=== PATIENT | female | born 1940 | race Caucasian/White ===

== ENCOUNTER 2016-12-07 12:21 | Emergency (ER) | payer OTHER, BC ==
[~2016-12-07] VITALS: Ht 160 cm; Wt 59.4 kg
[~2016-12-07 12:21] MED LIST: ASPI-390 PO; CALC500C70 PO; CELE100C PO; GLUCTAB7 PO; METH2.5T PO; MULT-506 PO; PRED-301 PO
[2016-12-07 12:29] VITALS: Ht 160 cm; Wt 59.4 kg
[2016-12-07] MEDS ORDERED: KETOROLAC TROMETHAMINE 30 MG/ML VIAL IV STA (12:41)
[2016-12-07] MEDS ORDERED: ACETAMINOPHEN 500 MG TAB PO STA (12:41)
[2016-12-07] MEDS ORDERED: SODIUM CHLORIDE 0.9% 1000ML 1,000 ML IV STA (12:41)
[2016-12-07] MEDS ORDERED: ONDANSETRON INJ 2 MG/ML 2 ML VIAL IV STA (12:41)
--- NOTE | 2016-12-07 13:10 | EMERGENCY ROOM VISIT NOTE ---
History Report prepared by [facility]: Ashlyn Perez Under the Supervision of: Dr. Perry Munoz M.D. First contact with patient: 12:35 Chief Complaint: HEADACHE Stated Complaint: HEADACHE, DIZZY X 3 DAYS, POSSIBLE DEHYDRATION History of Present Illness The patient is a 76 year old female who presents to the Emergency Room with complaints of a constant headache for the past 3 days. She states that the headache began gradually. It is located diffusely throughout her head and behind her eyes bilaterally. She has a history of migraine headaches, but states that this does not feel like her typical migraine. She has been taking Excedrin without any relief of her symptoms. The patient rates her pain as a 5/ 10 in severity. She has also been experiencing dizziness for the past 3 days. She states that it has gotten so intense that her has had to help her walk to the bathroom. She has nausea secondary to her dizziness and no appetite. The patient was seen today at [facility]. They were concerned for dehydration and advised the patient come to the ED for further evaluation. The patient states that she has had similar symptoms in the past with dehydration. She denies fever, vomiting, and urinary symptoms. She denies any focal weakness. She denies LOC or recent head injury. She does not take any blood thinners. Source of History: patient Onset: 3 days ago Position: head Symptom Intensity: 5/10 Timing: constant Associated Symptoms: + nausea, No LOC, No fevers, No vomiting, No urinary symptoms, No weakness Note: Pt reports dizziness. Review of Systems See HPI for pertinent positives & negatives. A total of 10 systems reviewed and were otherwise negative. Past Medical & Surgical Medical Problems: (1) Abdominal pain (2) Acute appendicitis (3) Change in mental status (4) Rheumatoid arthritis (5) Severe headache (6) Severe headache (7) Vomiting Family History Hypertension Social History Smoking Status: Never Smoker Drug Use: none Marital Status: Housing Status: lives with significant other Current/Historical Medications Scheduled Calcium/Vitamin D (Os-Get 500 Plus D), 1 TAB PO DAILY Celecoxib (Celebrex), 100 MG PO DAILY Zekhnzaqxzx-Tikrztrryzc-Brh C- (Glucosamine Chondroitin), 1 TAB PO DAILY Levofloxacin (Levaquin), 500 MG PO DAILY Methotrexate (Methotrexate), 15 MG PO WK Multivitamin (Multivitamin), 1 TAB PO DAILY Prednisone (Prednisone), 5 MG PO DAILY Scheduled PRN Hnpjjgy-Qsxfdulydgmvp-Vmvzlfwu (Excedrin Migraine), 2 TAB PO UD PRN for Migraine Allergies Coded Allergies: Penicillins (Verified Allergy, Unknown, ., 12/07/16) Physical Exam Vital Signs Date Time Temp Pulse Resp B/P (MAP) Pulse Ox O2 Delivery O2 Flow Rate FiO2 12/07/16 15:07 36.7 61 18 148/79 98 12/07/16 12:29 36.7 78 18 155/84 97 Room Air Physical Exam GENERAL: Patient is in no acute distress. HEENT: No acute trauma, normocephalic atraumatic, mucous membranes dry, no nasal congestion, no scleral icterus. NECK: No stridor, no adenopathy, no meningismus, trachea is midline. LUNGS: Clear to auscultation bilaterally, no wheeze, no rhonchi, breath sounds equal. HEART: Without murmurs gallops or rubs, regular rate and rhythm. ABDOMEN: Soft, nontender, bowel sounds positive, no hernias, no peritonitis. EXTREMITIES: No cyanosis or edema, full range of motion of all the joints without pain or difficulty, no signs for acute trauma. NEUROLOGIC: Oriented x 3, no acute motor or sensory deficits, no focal weakness. No pronator drift or cerebellar dysfunction. SKIN: No rash, no jaundice, no diaphoresis. Medical Decision & Procedures ER Provider Diagnostic Interpretation: Radiology results as stated below per my review and radiologist interpretation: CT SCAN OF THE BRAIN WITHOUT IV CONTRAST CLINICAL HISTORY: Dizziness and headache. COMPARISON STUDY: CT of the brain dated 05/29/2013. TECHNIQUE: Unenhanced axial CT scan of the brain is performed from the vertex to the skull base. CT DOSE: 537.48 mGy.cm FINDINGS: Brain parenchyma: There are age-related involutional changes noting mild subcortical and periventricular microangiopathic change. There is no hemorrhage, mass effect, or evidence of acute territorial ischemia by CT criteria. Graves-white matter is preserved. No extra-axial fluid collection is seen. Ventricles, sulci, cisterns: Prominent secondary to involutional change. Intracranial vasculature: There is atherosclerotic calcification of the cavernous carotid intervertebral arteries. Calvarium: Unremarkable. Sinuses and mastoids: The visualized paranasal sinuses are clear. The mastoid air cells are well pneumatized. Orbits: The bony orbits are grossly intact. There are bilateral ocular lens implants. IMPRESSION: There is no hemorrhage, mass effect, or evidence of acute territorial ischemia by CT criteria. Electronically signed by: Perry Handley M.D. 12/07/2016 1:39 PM Dictated Date/Time: 12/07/2016 1:34 PM Laboratory Results 12/07/16 13:20 Red Blood Count 4.28, Mean Corpuscular Volume 97.9, Mean Corpuscular Hemoglobin 35.5, Mean Corpuscular Hemoglobin Concent 36.3, Mean Platelet Volume 9.5, Neutrophils (%) (Auto) 79.6, Lymphocytes (%) (Auto) 6.8, Monocytes (%) (Auto) 11.6, Eosinophils (%) (Auto) 1.1, Basophils (%) (Auto) 0.3, Neutrophils # (Auto ) 5.71, Lymphocytes # (Auto) 0.49, Monocytes # (Auto) 0.83, Eosinophils # (Auto ) 0.08, Basophils # (Auto) 0.02 12/07/16 13:20 Test 12/07/16 13:20 White Blood Count 7.17 K/uL (4.8-10.8) Red Blood Count 4.28 M/uL (4.2-5.4) Hemoglobin 15.2 g/dL (12.0-16.0) Hematocrit 41.9 % (37-47) Mean Corpuscular Volume 97.9 fL (80-100) Mean Corpuscular Hemoglobin 35.5 pg (25-34) Mean Corpuscular Hemoglobin Concent 36.3 g/dl (32-36) Platelet Count 248 K/uL (130-400) Mean Platelet Volume 9.5 fL (7.4-10.4) Neutrophils (%) (Auto) 79.6 % Lymphocytes (%) (Auto) 6.8 % Monocytes (%) (Auto) 11.6 % Eosinophils (%) (Auto) 1.1 % Basophils (%) (Auto) 0.3 % Neutrophils # (Auto) 5.71 K/uL (1.4-6.5) Lymphocytes # (Auto) 0.49 K/uL (1.2-3.4) Monocytes # (Auto) 0.83 K/uL (0.11-0.59) Eosinophils # (Auto) 0.08 K/uL (0-0.5) Basophils # (Auto) 0.02 K/uL (0-0.2) RDW Standard Deviation 46.2 fL (36.4-46.3) RDW Coefficient of Variation 13.0 % (11.5-14.5) Immature Granulocyte % (Auto) 0.6 % Immature Granulocyte # (Auto) 0.04 K/uL (0.00-0.02) Urine Color YELLOW Urine Appearance CLEAR (CLEAR) Urine pH 6.5 (4.5-7.5) Urine Specific [place] <= 1.005 (1.000-1.030) Urine Protein NEG (NEG) Urine Glucose (UA) NEG (NEG) Urine Ketones 1+ (NEG) Urine Occult Blood TRACE (NEG) Urine Nitrite POS (NEG) Urine Bilirubin NEG (NEG) Urine Urobilinogen NEG (NEG) Urine Leukocyte Esterase MODERATE (NEG) Urine RBC 0-4 /hpf (0-4) Urine WBC >30 /hpf (0-5) Urine Epithelial Cells 0-5 /lpf (0-5) Urine Bacteria 3+ (NEG) Urine Hyaline Casts 1-5 /lpf (0-5) Anion Gap 8.0 mmol/L (3-11) Est Creatinine Clear Calc Drug Dose 46.4 ml/min Estimated GFR () 75.0 Estimated GFR (Non- 64.7 BUN/Creatinine Ratio 19.0 (10-20) Calcium Level 9.3 mg/dl (8.5-10.1) Chemistry Specimen Hemolysis Laboratory results reviewed by me. Medications Administered Medications (Trade) Dose Ordered Sig/Claude Route Start Time Stop Time Status Last Admin Dose Admin Ketorolac Tromethamine (Toradol Inj) 30 mg NOW STAT IV 12/07/16 12:41 12/07/16 12:44 DC 12/07/16 13:23 30 MG Sodium Chloride 1,000 ml @ 999 mls/hr Q1H1M STAT IV 12/07/16 12:41 12/07/16 13:41 DC 12/07/16 13:22 999 MLS/HR Ondansetron HCl (Zofran Inj) 4 mg NOW STAT IV 12/07/16 12:41 12/07/16 12:44 DC 12/07/16 13:22 4 MG Acetaminophen (Tylenol Tab) 1,000 mg NOW STAT PO 12/07/16 12:41 12/07/16 12:44 DC 12/07/16 13:23 1,000 MG Levofloxacin (Levaquin Tab) 750 mg NOW STAT PO 12/07/16 14:33 12/07/16 14:34 DC 12/07/16 14:40 750 MG ED Course 1235: The patient was evaluated in room A3. A complete history and physical exam was performed. 1241: Tylenol 1000 mg PO, Zofran 4 mg IV, NSS 1000 ml @ 999 mls/hr IV, Toradol 30 mg IV 1426: I reassessed the patient at this time. She is feeling better and resting comfortably. I discussed the results and treatment plan with the patient. I answered all pertaining questions that she had. She expressed understanding and verbalized agreement. The patient will be discharged home. 1433: Levofloxacin 750 mg PO Medical Decision Differential diagnoses includes migraine headache, tension headache, sinusitis, intracranial bleeding, stroke, UTI, electrolyte imbalance, infection. There is no leukocytosis or concerning anemia. No significant electrolyte abnormality, no kidney failure. Urinalysis does suggest infection. Urine culture is pending. Brain CT shows no acute bleed or mass effect. On exam, there were no focal neurologic deficits. The patient was afebrile, she was not toxic in appearance. Patient received IV saline, IV Zofran, IV Toradol and oral Tylenol. She was given oral Levaquin. The patient feels markedly better since treatment. I suspect the UTI is the major issue here today. She is being discharged on Levaquin for one more week. Hydration, rest, jvei-ymw-uxpctkj pain meds were encouraged. If worsening, she should return. Medication Reconcilliation Current Medication List: was personally reviewed by me Blood Pressure Screening Patient's blood pressure: Elevated blood pressure Blood pressure disposition: Elevated BP felt to be situational Impression Primary Impression: Headache Additional Impressions: Dehydration UTI (urinary tract infection) Scribe Attestation The scribe's documentation has been prepared under my direction and personally reviewed by me in its entirety. I confirm that the note above accurately reflects all work, treatment, procedures, and medical decision making performed by me. Departure Information Dispostion Home / Self-Care Prescriptions Levofloxacin (Levaquin) 500 Mg Tab 500 MG PO DAILY for 7 Days, #7 TAB Prov: Feese, Perry J.,M.D. 12/07/16 Referrals Susan Jara (PCP) Forms HOME CARE DOCUMENTATION FORM, IMPORTANT VISIT INFORMATION Patient Instructions My [facility] Additional Instructions levaquin daily for 1 more week stay well hydrated otc pain meds rest return for fever, vomiting or worsening symptoms lab testing and imaging was ok today a urine infection was noted Problem Qualifiers Primary Impression: Headache Headache type: unspecified Headache chronicity pattern: acute headache Intractability: not intractable Qualified Codes: R51 - Headache
[2016-12-07] MEDS ORDERED: ASPI-390 PO (13:41)
--- NOTE | 2016-12-07 13:41 | DIAGNOSTIC IMAGING REPORT ---
CT SCAN OF THE BRAIN WITHOUT IV CONTRAST CLINICAL HISTORY: Dizziness and headache. COMPARISON STUDY: CT of the brain dated 05/29/2013. TECHNIQUE: Unenhanced axial CT scan of the brain is performed from the vertex to the skull base. CT DOSE: 537.48 mGy.cm FINDINGS: Brain parenchyma: There are age-related involutional changes noting mild subcortical and periventricular microangiopathic change. There is no hemorrhage, mass effect, or evidence of acute territorial ischemia by CT criteria. Graves-white matter is preserved. No extra-axial fluid collection is seen. Ventricles, sulci, cisterns: Prominent secondary to involutional change. Intracranial vasculature: There is atherosclerotic calcification of the cavernous carotid intervertebral arteries. Calvarium: Unremarkable. Sinuses and mastoids: The visualized paranasal sinuses are clear. The mastoid air cells are well pneumatized. Orbits: The bony orbits are grossly intact. There are bilateral ocular lens implants. IMPRESSION: There is no hemorrhage, mass effect, or evidence of acute territorial ischemia by CT criteria. Electronically signed by: Perry Handley M.D. 12/07/2016 1:39 PM Dictated Date/Time: 12/07/2016 1:34 PM
[2016-12-07 13:44] LABS: BASO % 0.3 %; BASO ABS # 0.02 K/uL (0-0.2); COMPLETE YES; EOS % 1.1 %; HEMATOCRIT 41.9 % (37-47); IG% 0.6 %; LYMPH % 6.8 %; LYMPH ABS # 0.49 K/uL (1.2-3.4); MEAN CELL VOLUME 97.9 fL (80-100); MEAN CORPUSCULAR HEMOGLOBIN 35.5 pg (25-34); MEAN CORPUSCULAR HGB CONC 36.3 g/dl (32-36); MEAN PLATELET VOLUME 9.5 fL (7.4-10.4); MONO % 11.6 %; NEUT % 79.6 %; PLATELET COUNT 248 K/uL (130-400); RED BLOOD COUNT 4.28 M/uL (4.2-5.4); WHITE BLOOD COUNT 7.17 K/uL (4.8-10.8)
[2016-12-07 13:59] LABS: MANUAL MICROSCOPIC REQUIRED? YES; URINE APPEARANCE CLEAR (CLEAR); URINE BILIRUBIN NEG (NEG); URINE COLOR YELLOW; URINE NITRITE POS (NEG); URINE PH 6.5 (4.5-7.5); URINE SPECIFIC GRAVITY <= 1.005 (1.000-1.030); UROBILINOGEN NEG (NEG)
[2016-12-07 14:12] LABS: REVIEW REQ? NO
[2016-12-07 14:15] LABS: CALCIUM 9.3 mg/dl (8.5-10.1); CREATININE 0.88 mg/dl (0.60-1.20); POTASSIUM 3.7 mmol/L (3.5-5.1)
[2016-12-07 14:21] LABS: URINE BACTERIA 3+ (NEG); URINE RBC 0-4 /hpf (0-4); URINE WBC >30 /hpf (0-5); ZZUR CULT IF INDIC CLEAN CATCH YES
[2016-12-07] MEDS ORDERED: LEVOFLOXACIN 250 MG TAB PO STA (14:33)
[2016-12-07] MEDS ORDERED: LEVO-366 PO (14:36)
[2016-12-07 15:07] VITALS: BP 148/79; PULSE 61; TEMP 36.7; O2SAT 98
== END 2016-12-07 15:08 | disposition home or self-care (01) ==
LOC: C.EDB 12:25 → C.EDA 15:08
DX: R51 Headache (principal); E86.0 Dehydration; N39.0 Urinary tract infection, site not specified; M06.9 Rheumatoid arthritis, unspecified; Z82.49 Family history of ischemic heart disease and other diseases of the circulatory system; Z79.899 Other long term (current) drug therapy

== ENCOUNTER → 2016-12-13 | Outpatient (CLI) | payer OTHER, BC ==
[~2016-12-13] MED LIST changes: +LEVO-366 PO
--- NOTE | 2016-12-13 15:19 | MAMMOGRAPHY REPORT ---
BILATERAL DIGITAL SCREENING MAMMOGRAM WITH CAD: 12/13/2016 CLINICAL HISTORY: Routine screening. Patient has no complaints. TECHNIQUE: Bilateral CC and MLO views were obtained. Current study was also evaluated with a Compute r Aided Detection (CAD) system. COMPARISON: Comparison is made to exams dated: 12/11/2015 mammogram, 12/08/2014 mammogram, 3 mammogram, 02/15/2011 mammogram, 02/11/2009 mammogram - [facility], and 8. BREAST COMPOSITION: The tissue of both breasts is extremely dense, which lowers the sensitivity of m ammography. FINDINGS: The parenchymal pattern is similar to prior mammograms. No developing mass, architectural distortion or cluster of suspicious microcalcifications is seen in either breast. IMPRESSION: ACR BI-RADS CATEGORY 2: BENIGN There is no mammographic evidence of malignancy. A 1 year screening mammogram is recommended. The pa tient will receive written notification of the results. Approximately 10% of breast cancers are not detected with mammography. A negative mammographic report should not delay biopsy if a clinically suggestive mass is present. Roxanna Walton M.D. ay/:12/13/2016 12:12:00 Bit Sharpener: Alise KEENE(Roc)(Rashad), [facility] letter sent: Normal 1/2 BI-RADS Code: ACR BI-RADS Category 2: Benign
== END | disposition home or self-care (01) ==
LOC: C.MAMM 09:55
PROVIDERS: ATTEND Nurse Practitioner Family
DX: Z12.31 Encounter for screening mammogram for malignant neoplasm of breast (principal)

== ENCOUNTER → 2017-06-15 | Outpatient (CLI) | payer OTHER, BC ==
[~2017-06-15] MED LIST changes: -LEVO-366 PO
== END | disposition home or self-care (01) ==
LOC: C.MAMM 09:50
PROVIDERS: ATTEND Internal Medicine
DX: M85.89 Other specified disorders of bone density and structure, multiple sites (principal); M81.0 Age-related osteoporosis without current pathological fracture

== ENCOUNTER 2019-04-14 01:24 | Observation (INO) ==
[2019-04-14] MEDS ORDERED: ASPIRIN 81 MG CHEW PO STA (01:42)
[2019-04-14] MEDS ORDERED: LABETALOL HCL IV 5 MG/ML 20ML IV STA (02:15)
[2019-04-14 02:42] LABS: Basophils # (auto) 0.01 K/uL (0-0.2); Basophils % (auto) 0.2 %; Eosinophils # (auto) 0.09 K/uL (0-0.5); Hemoglobin 12.8 g/dL (12.0-16.0); Immature Granulocytes # (auto) 0.01 K/uL (0.00-0.02); Immature Granulocytes % (auto) 0.2 %; Lymphocytes % (auto) 31.8 %; Mean Corpuscular Hemoglobin 34.2 pg (25-34); Mean Corpuscular Hgb Conc 34.6 g/dL (32-36); Mean Corpuscular Volume 98.9 fL (80-100); Mean Platelet Volume 9.2 fL (7.4-10.4); Monocytes % (auto) 13.6 %; Neutrophils # (auto) 2.29 K/uL (1.4-6.5); Neutrophils % (auto) 52.2 %; Platelet Count 224 K/uL (130-400); RDW Coefficient of Variation 13.5 % (11.5-14.5); RDW Standard Deviation 48.9 fL (36.4-46.3); Red Blood Count 3.74 M/uL (4.2-5.4)
[2019-04-14 02:53] LABS: Partial Thromboplastin Ratio 0.8; Partial Thromboplastin Time 22.5 Seconds (21.0-31.0); Prothrombin Time 9.8 Seconds (9.0-12.0)
[2019-04-14 02:58] LABS: BUN Creatinine Ratio 30.5 (10-20); Blood Urea Nitrogen 22 mg/dl (7-18); Calcium 8.7 mg/dl (8.5-10.1); Carbon Dioxide 26 mmol/L (21-32); Chloride 110 mmol/L (98-107); Est GFR (African American) 92.7; Glucose 87 mg/dl (70-99); Potassium 3.7 mmol/L (3.5-5.1); Sodium 141 mmol/L (136-145)
[2019-04-14 03:03] LABS: Troponin I < 0.015 ng/ml (0-0.045)
--- NOTE | 2019-04-14 05:22 | History & Physical Report ---
Date of Service April 14, 2019 Assessment & Plan (1) Pressure in left side of chest: Iliana Montejo is a 78-year-old female with no prior history of cardiac disease or diabetes who presents with 2 weeks of intermittent palpitations and slight chest pain in her left inferior pec region which lasts for a couple beats/a couple of seconds but which is increasing in frequency in the last week. Chest pain/palpitations EKG on admission normal sinus rhythm. New T wave inversions appreciated in precordial leads. Slight ST depressions less than 1 mm appreciated in V4, V5, V6. Patient clinically asymptomatic at time of exam Initial troponin negative History potentially concerning for unstable angina, although description as a couple of very noticeable palpitations/beats may also be PVCs/PACs. If these are observed she may benefit from addition of a beta-vandana. Patient received labetalol in the emergency department, which may suppress these if present RN CAMP. Heart score of 3, low risk Admit to med telemetry for observation Trend troponins x3 Given territorial T wave inversions, if in-hospital evaluation is negative she may benefit from a nuclear stress test Given aspirin in ED Heparinization deferred Follow clinically CBC daily Lipid profile pending, A1c pending Psoriatic arthritis Scaled plaques present on extensor surfaces and lower back Continue prednisone/MTX therapy Stable, no acute change Chronic steroid treatment Alendronate 70 mg weekly, may resume after discharge Continue prednisone 5 mg daily DVT prophylaxis: Heparin 40 mg subcu Diet: Regular CODE STATUS: Full code Disposition: Med/telemetry for cardiac observation (2) T wave inversion in EKG: (3) Vertigo: (4) Rheumatoid arthritis: (5) Psoriatic arthritis: History of Present Illness Chief Complaint: Palpitations Primary Care Provider: CANDIDA Negron Iliana Montejo is a 78-year-old female with no prior history of cardiac disease or diabetes who presents with 2 weeks of intermittent palpitations and slight chest pain in her left inferior pec region which lasts for a couple beats/a couple of seconds but which is increasing in frequency in the last week. Her symptoms began 2 weeks ago, she noticed some left chest "fluttering "intermittently with no association to exercise or exertion. She has not had any associated dyspnea, diaphoresis, syncope, or presyncope. She does not have any chest pain or pressure, and no symptoms radiating into her shoulder or neck. She notes that she is able to climb a flight of stairs at baseline, and doing so does not induce or worsen her symptoms. Her symptoms have occurred at rest, and most recently have been occurring about every 45 minutes. She does not have a history of A. fib, PVCs, or PACs to her knowledge. She has not been sick recently, has no cold-like symptoms, and has not had any sensation or strength changes. She is seen at the bedside with her who reports that otherwise she is very well. She does not have a family history of early cardiac disease or cardiomyopathy. She reports that she has never needed to be treated for hypertension, and although she is anxious and her blood pressures been a little high this admission it is normally below 140. No recent fever/chills. Medical history: Vertigo, psoriatic arthritis Surgical history: Appendectomy Medications: Methotrexate and chronic prednisone 5 mg for psoriatic arthritis. She is to take celecoxib, has not taken this in over 1 month and tapered off of this. Has meclizine prescribed, but has not needed this since an episode of vertigo a long time ago. Allergies: Penicillins, rash Family history: No family history of early cardiac disease, diabetes, or stroke. Social: Non-smoker, no current or former tobacco use. No alcohol use. No recreational drug use. She is and is seen at bedside with her with whom she has a good relationship. She lives at home and is independent with no previous problems with ambulation. CODE STATUS: Full code Allergies Allergy/AdvReac Type Severity Reaction Status Date / Time Penicillins Allergy Unknown . Verified 04/14/19 02:13 Home Medications Home Medications Medication Instructions Recorded Confirmed Type alendronate 70 mg tablet 70 mg PO WEEKLY tab 02/21/19 04/14/19 History calcium citrate 250 mg 1 tab PO DAILY tab 02/21/19 04/14/19 History calcium-vitamin D3 200 unit tablet celecoxib 100 mg capsule 100 mg PO BID PRN 02/21/19 04/14/19 History meclizine 25 mg tablet 25 mg PO TID PRN #30 tab 02/21/19 04/14/19 Rx methotrexate sodium 2.5 mg tablet 12.5 mg PO WEEKLY tab 02/21/19 04/14/19 History prednisone 5 mg tablet 5 mg PO DAILY 02/21/19 04/14/19 History Past Med/Surg History Medical History (Updated 04/14/19 @ 04:11 by Kvng Thibodeaux) Acute appendicitis (Resolved) Psoriatic arthritis Rheumatoid arthritis (Chronic) Vertigo Surgical History (Updated 04/14/19 @ 01:44 by Kvng Thibodeaux) History of appendectomy Social History marital status: Current Living Situation: Spouse current occupational status: retired Feels Safe at Home: Yes Smoking Status: Never smoker Second Hand Exposure: No ; Hx Alcohol Use: No Hx Substance Use: No caffeine: No Dental Care, Regularly: Yes Physical Activity Frequency: 1-2 Times per Week Seatbelt Use: always Sunscreen Use: Yes Review of Systems Review of Systems: All systems reviewed & are unremarkable except as noted in HPI & below Physical Exam Physical Exam: General: A&Ox3. NAD. Cooperative. HEENT: Atraumatic, normocephalic. Mucous membranes moist. Pulm: CTAB A&P. -wheezes, -rales, -rhonchi. Symmetrical chest rise. No increase work of breathing. No respiratory distress. Cardiac: RRR, -mrg. Radial pulses intact and symmetrical. Abdominal: Nontender, nondistended, soft. BS present. CN II: Visual baird are full to confrontation. Pupils are equal and react to light and accomidation. Visual acuity grossly intact. CN III, IV, : At primary gaze, there is no eye deviation. EoM intact without nystagmus. No visual field cuts. CN V: Facial sensation is intact to soft touch in all 3 divisions bilaterally. CN VII: No facial asymmetry, full strength to eyebrow raise, smile, eye close, a nd cheek puff. CN VII: Hearing is grossly intact. CN IX, X: Palate elevates symmetrically. Phonation is normal without dysarthria. CN XI: Head turning and shoulder shrug are intact CN XII: Tongue protrudes midline. Reflexes: Patellar DTR 2+ Bilaterally. No ankle clonus. Sensory: Light touch, pinprick intact in upper and low extremities without deficit or asymmetry. Strength: RUE: Shoulder flexion/extension/internal rotation/external rotation, elbow flexion/extension, finger flexion/extension, sap bpc developer strength, interosseous 5/5 LUE: Shoulder flexion/extension/internal rotation/external rotation, elbow flexion/extension, finger flexion/extension, sap bpc developer strength, interosseous 5/5 RLE: Hip flexion, knee flexion/extension, ankle plantar flexion/dorsiflexion 5/5 LLE: Hip flexion, knee flexion/extension, ankle plantar flexion/dorsiflexion 5/5 Results & Data Vital Signs (Past 12 Hours) Vital Signs Temp Pulse Resp BP Pulse Ox 04/14/19 04:31 61 15 96 04/14/19 04:30 63 15 169/95 H 98 04/14/19 04:20 71 14 97 04/14/19 04:10 67 23 98 04/14/19 04:01 64 21 97 04/14/19 04:00 61 14 166/99 H 98 04/14/19 03:50 69 17 96 04/14/19 03:40 62 15 98 04/14/19 03:31 65 20 97 04/14/19 03:30 60 20 151/83 H 97 04/14/19 03:20 63 20 99 04/14/19 03:15 62 20 97 04/14/19 03:14 61 15 157/78 H 97 04/14/19 03:13 64 19 97 04/14/19 02:50 60 15 04/14/19 02:40 72 19 04/14/19 02:31 63 14 04/14/19 02:30 70 14 181/115 H 04/14/19 02:01 64 14 97 04/14/19 02:00 68 18 184/107 H 99 04/14/19 01:45 65 16 182/104 H 97 04/14/19 01:35 76 20 04/14/19 01:33 77 20 209/88 H 04/14/19 01:30 36.6 C 74 18 209/88 H 99 Supervising Physician Co-Signing Physician Notes During my face to face encounter with the patient, which was completed after discussing case with Dr. Calvert, I obtained a history and physical examination. I reviewed above note, and agree with it. I reviewed the lab results and images. Patient will be admitted under obs for chest pain. Will check troponin x 3. Heart score of 3. EKG does show t wave inversion. May consider echocardiogram and stress test. Resident Activity Tracking Resident Involvement: Resident Care Provided Care Provided: Adult [facility]
--- NOTE | 2019-04-14 06:13 | Billing Data ---
Date of Service April 14, 2019 Coding Level of Care Code 11332 OBS Care - Level 3
--- NOTE | 2019-04-14 06:25 | Emergency Department Note ---
Entered by Kvng Thibodeaux acting as a scribe for ED Provider Note Name: Iliana Montejo Age: 78 Arrives Via: Walk in Informant: Patient CC: Chest discomfort HPI: The patient is a 78 year old female who presents to the emergency department with complaints of worsening chest discomfort beginning two weeks ago. The patient states that she started having intermittent chest fluttering for two weeks. She notes that these episodes have been more frequent and longer for the last day. She reports that her discomfort is a dull ache, and she states that her discomfort does not radiate. She notes that nothing makes her discomfort better or worse. She denies any nausea, vomiting, LOC, SOB, leg swelling, abdominal pain, and lightheadedness. She denies any current CP. She reports that she recently flew back from [place]. The patient states that she does not have a personal or family history of heart problems. She notes that she does not smoke cigarettes or drink alcohol. She reports that she has been on prednisone for a long time due to psoriatic arthritis. ROS: See above HPI for pertinent positives & negatives. A total of 10 systems reviewed and were otherwise negative. Past Medical History: Psoriatic arthritis Past Surgical History: Appendectomy Family History: Hypertension, cancer Social History: Lives with family, does not smoke cigarettes or drink alcohol Home Medications: Please see medication list Allergies: Penicillin Physical: Vitals: BP 209/110, Pulse 204, Resp 18, Temp 97.9 F, O2 Sat 99 Exam: GENERAL: Patient is mildly anxious appearing and in no acute distress. EYES: No scleral icterus, unremarkable pupils. ENT: Mucous membranes moist, no nasal congestion. NECK: No masses appreciated, no meningismus, trachea is midline. RESPIRATORY: No dyspnea. Clear to auscultation and equal bilaterally. No wheeze, no rhonchi. CARDIOVASCULAR: Regular rate and rhythm. No murmurs, rubs, gallops appreciated. GASTROINTESTINAL: Abdomen soft, non-tender, no peritonitis. Bowel sounds positive. No masses appreciated. BACK: No midline tenderness, no CVA tenderness EXTREMITIES: Normal motion all extremities, no cyanosis, no edema. NEUROLOGIC: Alert and oriented, no acute motor or sensory deficits, no focal weakness, cranial nerves grossly intact. SKIN: No rash, no jaundice, no diaphoresis. Multiple areas of psoriatic findings. ED Course: Prior Medical Record, Triage/Nursing Notes, Medications, Allergies reviewed by Me Richardson3: The patient was evaluated in room B7. A complete history and physical exam was performed. 0215: I rechecked the patient. Her blood pressure remains at 180/107. Labetalol was ordered. She had several more episodes of mild discomfort over the last few minutes. 0347: I reevaluated and updated the patient. She has no further pain and is agreeable to hospitalization. 0401: Upon reevaluation, the patient is stable. I discussed the findings and the treatment plan with the patient. She expresses agreement and understanding. I spoke with Dr. Rodríguez of the [facility] Hospitalist Service. The patient will be evaluated for further management. Vital Signs: reviewed and remarkable for HTN Labs: Reviewed and remarkable for wnl cbc, bmp, trop Interventions: Saline lock, asa 324mg PO, labetalol 10mg IV Imaging: CHEST X-RAY: X ray results are stated below per my interpretation: Chest: 1 view: No infiltrate, no effusion, normal cardiac border. EKG: Per My Interpretation: Indication Chest Pain: NSR 68 bpm, qtc 423. Anterolateral T wave inversions noted. No Ectopy. No Stemi. Compared to EKG 11/13/14 the T wave inversions are new Oyster Farmer: An Order was placed for continuous cardiac monitoring. Ther monitor shows a rate of 70 with a normal sinus rhythm. Consults: 0401: I reviewed the patient's case with Dr. Rodríguez - Hospitalist, [facility]. He will evaluate the patient for further management. Blood pressure: Elevated - Will be monitored by hospitalist. Disposition: Hospitalization Differential diagnoses includes but is not limited to acute coronary syndrome, myocardial infarction, pericarditis, pulmonary embolus, aortic dissection, pneumonia, pneumothorax, musculoskeletal, shingles, esophageal. Medical Decision Makin yr old female with history of chronic prednisone use, psoriasis and vertigo arrives with increasing intermittent left chest pains for the last 2 weeks, significantly increased this evening. No pain on arrival. Quite Hypertensive on arrival evaluation and EKG with new lateral T wave inversions. ASA given and work-up begun. Labetalol for Hypertension with improvement. Labs unremarkable, cxr clear. Trop initially is negative. With HEART score and T wave inversions I feel hospitalization warranted. Patient stable without further symptoms. Symptoms are not consistent with PE/Dissection. There is no evidence of infection or electrolyte imbalance. Impression: Unstable angina, Pressure in left side of chest, T wave inversion in EKG Colt Haro MD The scribe's documentation has been prepared under my direction and personally reviewed by me in its entirety. I confirm that the note above accurately reflects all work, treatment, procedures, and medical decision making performed by me. Impression & Plan Unstable angina, Pressure in left side of chest, T wave inversion in EKG Past Med/Surg History Medical History (Updated 04/14/19 @ 04:11 by Kvng Thibodeaux) Acute appendicitis (Resolved) Psoriatic arthritis Rheumatoid arthritis (Chronic) Vertigo Surgical History (Updated 04/14/19 @ 01:44 by Kvng Thibodeaux) History of appendectomy Social History marital status: Current Living Situation: Spouse current occupational status: retired Feels Safe at Home: Yes Smoking Status: Never smoker Second Hand Exposure: No ; Hx Alcohol Use: No Hx Substance Use: No caffeine: No Dental Care, Regularly: Yes Physical Activity Frequency: 1-2 Times per Week Seatbelt Use: always Sunscreen Use: Yes Results & Data Vital Signs Vital Signs - 24 hr 04/14/19 01:30 04/14/19 01:33 04/14/19 01:35 Temperature 36.6 C Temperature Source Oral Pulse Rate 74 77 76 Pulse Rate from SpO2 Sensor Pulse Rhythm Regular Pulse Strength Normal Respiratory Rate 18 20 20 Respiratory Effort / Characteristics Non-Labored Spontaneous Respiratory Depth Normal Respiratory Pattern Regular Blood Pressure 209/88 H 209/88 H Blood Pressure Mean 128 118 Blood Pressure Position Sitting Pulse Oximetry 99 Oxygen Delivery Method Room Air Sepsis Recent Fever Within 48 Hours No Sepsis Action Taken by Nursing No Action Required 04/14/19 01:45 04/14/19 02:00 04/14/19 02:01 Temperature Temperature Source Pulse Rate 65 68 64 Pulse Rate from SpO2 Sensor 66 68 64 Pulse Rhythm Pulse Strength Respiratory Rate 16 18 14 Respiratory Effort / Characteristics Respiratory Depth Respiratory Pattern Blood Pressure 182/104 H 184/107 H Blood Pressure Mean 152 165 Blood Pressure Position Pulse Oximetry 97 99 97 Oxygen Delivery Method Sepsis Recent Fever Within 48 Hours Sepsis Action Taken by Nursing 04/14/19 02:30 04/14/19 02:31 04/14/19 02:40 Temperature Temperature Source Pulse Rate 70 63 72 Pulse Rate from SpO2 Sensor Pulse Rhythm Pulse Strength Respiratory Rate 14 14 19 Respiratory Effort / Characteristics Respiratory Depth Respiratory Pattern Blood Pressure 181/115 H Blood Pressure Mean 160 Blood Pressure Position Pulse Oximetry Oxygen Delivery Method Sepsis Recent Fever Within 48 Hours Sepsis Action Taken by Nursing 04/14/19 02:50 04/14/19 03:13 04/14/19 03:14 Temperature Temperature Source Pulse Rate 60 64 61 Pulse Rate from SpO2 Sensor 65 62 Pulse Rhythm Pulse Strength Respiratory Rate 15 19 15 Respiratory Effort / Characteristics Respiratory Depth Respiratory Pattern Blood Pressure 157/78 H Blood Pressure Mean 122 Blood Pressure Position Pulse Oximetry 97 97 Oxygen Delivery Method Sepsis Recent Fever Within 48 Hours Sepsis Action Taken by Nursing 04/14/19 03:15 04/14/19 03:20 04/14/19 03:30 Temperature Temperature Source Pulse Rate 62 63 60 Pulse Rate from SpO2 Sensor 63 62 60 Pulse Rhythm Pulse Strength Respiratory Rate 20 20 20 Respiratory Effort / Characteristics Respiratory Depth Respiratory Pattern Blood Pressure 151/83 H Blood Pressure Mean 111 Blood Pressure Position Pulse Oximetry 97 99 97 Oxygen Delivery Method Sepsis Recent Fever Within 48 Hours Sepsis Action Taken by Nursing 04/14/19 03:31 04/14/19 03:40 04/14/19 03:50 Temperature Temperature Source Pulse Rate 65 62 69 Pulse Rate from SpO2 Sensor 65 62 68 Pulse Rhythm Pulse Strength Respiratory Rate 20 15 17 Respiratory Effort / Characteristics Respiratory Depth Respiratory Pattern Blood Pressure Blood Pressure Mean Blood Pressure Position Pulse Oximetry 97 98 96 Oxygen Delivery Method Sepsis Recent Fever Within 48 Hours Sepsis Action Taken by Nursing 04/14/19 04:00 04/14/19 04:01 04/14/19 04:10 Temperature Temperature Source Pulse Rate 61 64 67 Pulse Rate from SpO2 Sensor 62 65 67 Pulse Rhythm Pulse Strength Respiratory Rate 14 21 23 Respiratory Effort / Characteristics Respiratory Depth Respiratory Pattern Blood Pressure 166/99 H Blood Pressure Mean 135 Blood Pressure Position Pulse Oximetry 98 97 98 Oxygen Delivery Method Sepsis Recent Fever Within 48 Hours Sepsis Action Taken by Nursing 04/14/19 04:20 04/14/19 04:30 04/14/19 04:31 Temperature Temperature Source Pulse Rate 71 63 61 Pulse Rate from SpO2 Sensor 69 64 62 Pulse Rhythm Pulse Strength Respiratory Rate 14 15 15 Respiratory Effort / Characteristics Respiratory Depth Respiratory Pattern Blood Pressure 169/95 H Blood Pressure Mean 130 Blood Pressure Position Pulse Oximetry 97 98 96 Oxygen Delivery Method Sepsis Recent Fever Within 48 Hours Sepsis Action Taken by Nursing 04/14/19 04:40 04/14/19 04:50 04/14/19 05:00 Temperature Temperature Source Pulse Rate 71 62 65 Pulse Rate from SpO2 Sensor 70 62 66 Pulse Rhythm Pulse Strength Respiratory Rate 19 20 21 Respiratory Effort / Characteristics Respiratory Depth Respiratory Pattern Blood Pressure 174/94 H Blood Pressure Mean 109 Blood Pressure Position Pulse Oximetry 98 96 97 Oxygen Delivery Method Sepsis Recent Fever Within 48 Hours Sepsis Action Taken by Nursing 04/14/19 05:10 04/14/19 05:17 04/14/19 05:20 Temperature Temperature Source Pulse Rate 64 64 66 Pulse Rate from SpO2 Sensor 65 63 66 Pulse Rhythm Pulse Strength Respiratory Rate 16 15 20 Respiratory Effort / Characteristics Respiratory Depth Respiratory Pattern Blood Pressure 182/91 H Blood Pressure Mean 148 Blood Pressure Position Pulse Oximetry 99 97 98 Oxygen Delivery Method Sepsis Recent Fever Within 48 Hours Sepsis Action Taken by Nursing 04/14/19 05:30 04/14/19 05:31 04/14/19 05:40 Temperature Temperature Source Pulse Rate 64 64 65 Pulse Rate from SpO2 Sensor 64 63 65 Pulse Rhythm Pulse Strength Respiratory Rate 18 16 14 Respiratory Effort / Characteristics Respiratory Depth Respiratory Pattern Blood Pressure 180/110 H Blood Pressure Mean 150 Blood Pressure Position Pulse Oximetry 98 96 95 Oxygen Delivery Method Sepsis Recent Fever Within 48 Hours Sepsis Action Taken by Nursing 04/14/19 05:50 Temperature Temperature Source Pulse Rate 69 Pulse Rate from SpO2 Sensor 66 Pulse Rhythm Pulse Strength Respiratory Rate 18 Respiratory Effort / Characteristics Respiratory Depth Respiratory Pattern Blood Pressure Blood Pressure Mean Blood Pressure Position Pulse Oximetry 97 Oxygen Delivery Method Sepsis Recent Fever Within 48 Hours Sepsis Action Taken by Nursing Laboratory Data Result diagrams: 04/14/19 02:25 04/14/19 02:25 Lab Results 04/14/19 04/14/19 04/14/19 Range/Units 02:25 02:25 02:25 WBC 4.40 L (4.8-10.8) K/uL RBC 3.74 L (4.2-5.4) M/uL Hgb 12.8 (12.0-16.0) g/dL Hct 37.0 (37-47) % MCV 98.9 (80-100) fL MCH 34.2 H (25-34) pg MCHC 34.6 (32-36) g/dL RDW Std Deviation 48.9 H (36.4-46.3) fL RDW Coeff of Windy 13.5 (11.5-14.5) % Plt Count 224 (130-400) K/uL MPV 9.2 (7.4-10.4) fL Immature Gran % (Auto) 0.2 % Neut % (Auto) 52.2 % Lymph % (Auto) 31.8 % [place] % (Auto) 13.6 % Eos % (Auto) 2.0 % Baso % (Auto) 0.2 % Immature Gran # (Auto) 0.01 (0.00-0.02) K/uL Neut # (Auto) 2.29 (1.4-6.5) K/uL Lymph # (Auto) 1.40 (1.2-3.4) K/uL [place] # (Auto) 0.60 H (0.11-0.59) K/uL Eos # (Auto) 0.09 (0-0.5) K/uL Baso # (Auto) 0.01 (0-0.2) K/uL PT 9.8 (9.0-12.0) Seconds INR 1.0 (0.9-1.1) APTT 22.5 (21.0-31.0) Seconds PTT Ratio 0.8 Sodium 141 (136-145) mmol/L Potassium 3.7 (3.5-5.1) mmol/L Chloride 110 H (98-107) mmol/L Carbon Dioxide 26 (21-32) mmol/L Anion Gap 5.0 (3-11) BUN 22 H (7-18) mg/dl Creatinine 0.73 (0.6-1.2) mg/dl Est Cr Clr Drug Dosing 59.0 ml/min Est GFR ( Amer) 92.7 Est GFR (Non-Af Amer) 80.0 BUN/Creatinine Ratio 30.5 H (10-20) Glucose 87 (70-99) mg/dl Calcium 8.7 (8.5-10.1) mg/dl Troponin I < 0.015 (0-0.045) ng/ml Administered Medications Discontinued Medications Aspirin (Aspirin Chew) 324 mg PO NOW STA Stop: 04/14/19 01:43 Last Admin: 04/14/19 02:10 Dose: 324 mg Documented by: [id number] Labetalol HCl (Normodyne) 10 mg IV NOW STA Stop: 04/14/19 02:16 Last Admin: 04/14/19 02:32 Dose: 10 mg Documented by: [id number] Cosigned by: [id number] Discharge Plan Visit Data Chief Complaint: Cardiac Assessment Stated Complaint: CHEST PAIN - STARTED FLUTTER 2 WEEKS AGO ED Provider: Colt Haro Discharge Problem: Unstable angina, Pressure in left side of chest, T wave inversion in EKG Patient Disposition: Being Evaluated by Hospitalist Discharge Instructions Interventions: ED Discharge Assessment Last Done: 04/14/19 06:15 Forms Stand Alone Forms: My [facility] Prescriptions Prescriptions: No Action prednisone 5 mg tablet 5 mg PO DAILY RF: 0 methotrexate sodium 2.5 mg tablet 12.5 mg PO WEEKLY RF: 0 celecoxib [Celebrex] 100 mg capsule 100 mg PO BID PRN (Reason: pain) RF: 0 calcium citrate-vitamin D3 [Citracal Regular] 250 mg calcium- 200 unit tablet 1 tab PO DAILY RF: 0 alendronate [Fosamax] 70 mg tablet 70 mg PO WEEKLY RF: 0 meclizine 25 mg tablet 25 mg PO TID PRN (Reason: motion sickness) Qty: 30 RF: 0 Referrals Referrals: Susan Jara CRNP [Primary Care Provider] - The scribe's documentation has been prepared under my direction and personally reviewed by me in its entirety. I confirm that the note above accurately reflects all work, treatment, procedures, and medical decision making performed by me.
[2019-04-14] MEDS ORDERED: ACETAMINOPHEN 325 MG TAB PO PRN (06:37)
[2019-04-14] MEDS ORDERED: POLYETHYLENE (MIRALAX) 17 GM PACK PO PRN (06:37)
[2019-04-14] MEDS ORDERED: NITROGLYCERIN SL 0.4 MG/TAB TAB SL PRN (06:37)
--- NOTE | 2019-04-14 07:53 | XRay Report ---
SINGLE VIEW CHEST CLINICAL HISTORY: Atypical chest pain. FINDINGS: An AP, portable, upright chest radiograph is compared to study dated 05/29/2013. The examinat ion is degraded by portable technique and patient rotation. The cardiomediastinal silhouette is unre markable. The lungs and pleural spaces are clear. No pneumothorax is seen. The skeletal structures ar e osteopenic. The bony thorax is grossly intact. IMPRESSION: No active disease in the chest. ACT 112: Negative or not required by law. Electronically signed by: Perry Handley M.D. 04/14/2019 7:51 AM
[2019-04-14 08:11] LABS: Thyroid Stimulating Hormone 7.43 uIu/ml (0.300-4.500)
[2019-04-14] MEDS ORDERED: ENOXAPARIN INJ 40 MG/0.4 ML SYR SQ SCH (09:00)
[2019-04-14] MEDS ORDERED: predniSONE 5 MG TAB PO SCH (09:00)
--- NOTE | 2019-04-14 13:44 | Discharge Summary ---
Date of Service April 14, 2019 Admission HPI Per Admitting Provider Iliana Montejo is a 78-year-old female with no prior history of cardiac disease or diabetes who presents with 2 weeks of intermittent palpitations and slight chest pain in her left inferior pec region which lasts for a couple beats/a couple of seconds but which is increasing in frequency in the last week. Her symptoms began 2 weeks ago, she noticed some left chest "fluttering "intermittently with no association to exercise or exertion. She has not had any associated dyspnea, diaphoresis, syncope, or presyncope. She does not have any chest pain or pressure, and no symptoms radiating into her shoulder or neck. She notes that she is able to climb a flight of stairs at baseline, and doing so does not induce or worsen her symptoms. Her symptoms have occurred at rest, and most recently have been occurring about every 45 minutes. She does not have a history of A. fib, PVCs, or PACs to her knowledge. She has not been sick recently, has no cold-like symptoms, and has not had any sensation or strength changes. She is seen at the bedside with her who reports that otherwise she is very well. She does not have a family history of early cardiac disease or cardiomyopathy. She reports that she has never needed to be treated for hypertension, and although she is anxious and her blood pressures been a little high this admission it is normally below 140. No recent fever/chills. Medical history: Vertigo, psoriatic arthritis Surgical history: Appendectomy Medications: Methotrexate and chronic prednisone 5 mg for psoriatic arthritis. She is to take celecoxib, has not taken this in over 1 month and tapered off of this. Has meclizine prescribed, but has not needed this since an episode of vertigo a long time ago. Allergies: Penicillins, rash Family history: No family history of early cardiac disease, diabetes, or stroke. Social: Non-smoker, no current or former tobacco use. No alcohol use. No recreational drug use. She is and is seen at bedside with her with whom she has a good relationship. She lives at home and is independent with no previous problems with ambulation. CODE STATUS: Full code Admission Exam Per Admitting Provider General: A&Ox3. NAD. Cooperative. HEENT: Atraumatic, normocephalic. Mucous membranes moist. Pulm: CTAB A&P. -wheezes, -rales, -rhonchi. Symmetrical chest rise. No increase work of breathing. No respiratory distress. Cardiac: RRR, -mrg. Radial pulses intact and symmetrical. Abdominal: Nontender, nondistended, soft. BS present. CN II: Visual baird are full to confrontation. Pupils are equal and react to light and accomidation. Visual acuity grossly intact. CN III, IV, : At primary gaze, there is no eye deviation. EoM intact without nystagmus. No visual field cuts. CN V: Facial sensation is intact to soft touch in all 3 divisions bilaterally. CN VII: No facial asymmetry, full strength to eyebrow raise, smile, eye close, and cheek puff. CN VII: Hearing is grossly intact. CN IX, X: Palate elevates symmetrically. Phonation is normal without dysarthria. CN XI: Head turning and shoulder shrug are intact CN XII: Tongue protrudes midline. Reflexes: Patellar DTR 2+ Bilaterally. No ankle clonus. Sensory: Light touch, pinprick intact in upper and low extremities without deficit or asymmetry. Strength: RUE: Shoulder flexion/extension/internal rotation/external rotation, elbow flexion/extension, finger flexion/extension, developmental electronics assembler strength, interosseous 5/5 LUE: Shoulder flexion/extension/internal rotation/external rotation, elbow flexion/extension, finger flexion/extension, developmental electronics assembler strength, interosseous 5/5 RLE: Hip flexion, knee flexion/extension, ankle plantar flexion/dorsiflexion 5/5 LLE: Hip flexion, knee flexion/extension, ankle plantar flexion/dorsiflexion 5/5 Principal Diagnosis chest pressure Discharge Exam Constitutional WD/WN, vitals as above cooperative Eyes + anicteric sclerae ENMT external ear and nose normal, oropharynx normal Neck normal visual inspection and trachea midline Respiratory normal respiratory effort, lungs clear to auscultation Cardiovascular RRR, no murmur, no edema Heart Sounds: normal S1 and normal S2 Chest (Breasts) Additional Comments: Parasternal area tender to palpation Gastrointestinal (Abdomen) normal bowel sounds, soft, nontender, no hepatosplenomegaly Skin no rashes, warm and dry Psychiatric A+Ox3, euthymic affect Discharge Data Allergies Allergy/AdvReac Type Severity Reaction Status Date / Time Penicillins Allergy Unknown . Verified 04/14/19 02:13 Consultations 04/14/19 03:59 ED Decision to Admit Stat Hospital Course (1) Pressure in left side of chest: Iliana Montejo is a 78-year-old female with no prior history of cardiac disease admitted 04/13/19 for ACS rule out. Chest pressure/palpitations Patient's chest discomfort and "fluttering sensation," were intermittently present throughout hospital stay. She reported pain on palpation of sternal area, however it was unclear as to whether this was provocative of the same discomfort that lead to this hospital stay. Trop x 2 were undetectable. EKG on admission normal sinus rhythm. New T wave inversions appreciated in precordial leads. Slight ST depressions less than 1 mm appreciated in V4, V5, V6. While on telemetry in the hospital, no ectopy or arrhythmias were captured. Lipid panel showing total cholesterol 226; LDL 130; HDL 75, ratio 3; patient not currently on statin therapy. Magnesium level normal; TSH elevated to 7.4 HbA1c pending at time of discharge. Echocardiogram was obtained but report was not available for review by the time of discharge. Patient was counseled that if symptoms worsen, she should return to ED for further evaluation. Outpatient items to do: consider Holter monitor for further rhythm monitoring. follow up on A1c level and ECHO report. Elevated TSH - TSH 7.4 on admission. - patient without underlying thyroid disease Outpatient items to do: consider repeating TSH Psoriatic arthritis Scaled plaques present on extensor surfaces and lower back Continue prednisone 5mg daily /MTX therapy Stable, no acute change (2) T wave inversion in EKG: (3) Vertigo: (4) Rheumatoid arthritis: (5) Psoriatic arthritis: Total Time Total Time Spent Total Time Spent (In Minutes): see attending attestation Discharge Plan Discharge Items Patient Disposition: Home - Self-Care Reason For Visit: CHEST PAIN/PALPITATIONS Discharge Diagnosis: Chest pressure Activity: Resume your previous activity Non-emergency contact: Primary Care Provider Call non-emergency contact if: your symptoms worsen Follow-up/Referrals: Susan Jara CRNP [Primary Care Provider] - 04/17/19 10:30 am (this apt was made for you, if you can not make this please reschedule) Diet: Regular Addtl Attending Provider Instructions: You were hospitalized at [facility] on 04/13/19-04/14/19 for evaluation of chest pressure/fluttering sensation. Your cardiac enzymes were normal, indicating there was no strain to your heart muscle. Your EKG showed some non-specific abnormalities, but no evidence of a heart attack. You were kept on strap machine operator while in the hospital, which showed no irregularities with your heart rhythm. An echocardiogram, or ultrasound of your heart, was done. This study was no read by the time of your discharge. Please follow up with your PCP regarding the results. Your thyroid function was found to be abnormal while in the hospital. However, this is unlikely related to your chest discomfort. If your symptoms worsen, please return to the ED for evaluation. Please follow up with your PCP with 1 week of discharge. Pending Studies at Discharge: Yes Studies:: Echocardiogram Stand-Alone Forms: My [facility] [employer], Smoking Cessation Medications and DC Order Prescriptions: Continued prednisone 5 mg tablet 5 mg PO DAILY RF: 0 methotrexate sodium 2.5 mg tablet 12.5 mg PO WEEKLY RF: 0 celecoxib [Celebrex] 100 mg capsule 100 mg PO BID PRN (Reason: pain) RF: 0 calcium citrate-vitamin D3 [Citracal Regular] 250 mg calcium- 200 unit tablet 1 tab PO DAILY RF: 0 alendronate [Fosamax] 70 mg tablet 70 mg PO WEEKLY RF: 0 meclizine 25 mg tablet 25 mg PO TID PRN (Reason: motion sickness) Qty: 30 RF: 0 Discharge Orders: Discharge Order (Routine); Ordered 04/14/19 Ordered By: Sherice Graham Admission Data Admit Date/Time: 04/14/19 05:51 Attending Provider: Viri Fish Admit Provider: Balta Calvert Primary Care Provider: Susan Jara Other Providers: Tino Rodríguez Other Interventions: Discharge Summary Assessment (RN) Last Done: 04/14/19 18:01 DC Date/Time DO NOT enter until pt leaves facility: 04/14/19 18:25 Supervising Physician Co-Signing Physician Notes Resident Physician Supervision Note: I independently interviewed and examined the patient and verified the gandhi history and physical, reviewed labs and image studies, discussed the case with the resident Dr. Graham and agree with the findings and care plan. Resident Activity Tracking Resident Involvement: Resident Care Provided Care Provided: Adult Hospital Medicine
--- NOTE | 2019-04-14 14:18 | Electrocardiogram Report ---
Test Reason : Blood Pressure : / mmHG Vent. Rate : 068 BPM Atrial Rate : 068 BPM P-R Int : 144 ms QRS Dur : 072 ms QT Int : 398 ms P-R-T Axes : 046 029 -39 degrees QTc Int : 423 ms Normal sinus rhythm Abnormal ECG When compared with ECG of 13-NOV-2014 21:51, Non-specific change in ST segment in Lateral leads Nonspecific T wave abnormality, worse in Inferior leads T wave inversion now evident in Anterolateral leads Confirmed by Ubaldo Blake ([id number]) on 04/14/2019 2:17:58 PM Referred By: REFERRED SELF Confirmed By:Ubaldo Blake
[2019-04-15 06:06] LABS: Estimated Average Glucose 111 mg/dl; Hemoglobin A1C 5.5 % (4.5-5.6)
--- NOTE | 2019-04-15 11:23 | XCELERA ---
[id number] \\[id number]
== END 2019-04-14 18:25 | disposition home or self-care (01) ==
LOC: 2S 01:24 → ED 01:24 → SUATTDRO 05:51 → 2S 06:15